=== PATIENT | male | born 1995 | race American Indian/Alaskan Native ===

== ENCOUNTER 2019-11-09 16:54 | Emergency (ER) | payer SELFPAY ==
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
[2019-11-09] MEDS ORDERED: Ibuprofen 800 MG Tab PO ONE (18:29)
[2019-11-09] MEDS ORDERED: Acetaminophen/HYDROcodone 325-10 MG Tab PO ONE (18:29)
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
== END 2019-11-09 18:47 | disposition home or self-care (01) ==
LOC: DL.ED 16:54
DX: S43.102A Unspecified dislocation of left acromioclavicular joint, initial encounter (principal); V86.99XA Unspecified occupant of other special all-terrain or other off-road motor vehicle injured in nontraffic accident, initial encounter
CPT/HCPCS: 73030; 99284; A9270; 99283

== ENCOUNTER 2024-10-05 05:36 | Emergency (ER) | payer OTHER ==
[2024-10-05] MEDS: Bacitracin Oint 1 GM U/D Packet TOP ONE (06:12)
== END 2024-10-05 07:23 | disposition home or self-care (01) ==
LOC: DL.ED 05:36
DX: S01.01XA Laceration without foreign body of scalp, initial encounter (principal); Y04.0XXA Assault by unarmed brawl or fight, initial encounter; Y93.89 Activity, other specified
CPT/HCPCS: 12001; 99283; A9270; J2003